=== PATIENT | female | born 1990 | race Caucasian/White ===

== ENCOUNTER 2016-04-06 11:12 | Emergency (ER) | payer SELFPAY ==
[~2016-04-06] VITALS: Ht 157.5 cm; Wt 73.5 kg
[~2016-04-06 11:12] MED LIST: ERYT1OIN6 EACHEYE; NITR100C62 PO
[2016-04-06 12:00] LABS: BASO % 1 % (0-3); EOS % 1 % (0-3); HEMATOCRIT 40.9 % (36.0-47.0); HEMOGLOBIN 13.5 g/dL (12.0-15.5); LYMPH # 1.8 x10^3/uL (1.0-4.8); LYMPH % 33 % (24-48); MEAN CORPUSCULAR HEMOGLOBIN 24 pg (25-35); MEAN CORPUSCULAR HGB CONC 33 g/dL (31-37); MEAN CORPUSCULAR VOLUME 73 fL (79-100); MONO % 10 % (0-9); NEUT % 56 % (31-73); PLATELET COUNT 252 x10^3/uL (140-400); RED BLOOD COUNT 5.63 x10^6/uL (3.50-5.40); RED CELL DISTRIBUTION WIDTH 17.5 % (11.5-14.5); WHITE BLOOD COUNT 5.4 x10^3/uL (4.0-11.0)
[2016-04-06] MEDS ORDERED: KETOROLAC TROMETHAMINE 30 MG/ML SYRINGE. IV ONE (12:00)
[2016-04-06] MEDS ORDERED: IV NORMAL SALINE 1000ML BAG 1,000 ML IV SCH (12:00)
[2016-04-06 12:08] LABS: CALCIUM 8.9 mg/dL (8.5-10.1); CREATININE 0.7 mg/dL (0.6-1.0); GFR 101.1; POTASSIUM 3.2 mmol/L (3.5-5.1)
[2016-04-06 12:14] LABS: ALBUMIN 3.9 g/dL (3.4-5.0); ALBUMIN/GLOBULIN RATIO 1.1 (1.0-1.7); TOTAL BILIRUBIN 0.3 mg/dL (0.2-1.0); TOTAL PROTEIN 7.4 g/dL (6.4-8.2)
[2016-04-06 13:20] LABS: BILIRUBIN,URINE NEGATIVE (NEG); GLUCOSE,URINE NEGATIVE (NEG); NITRITE,URINE NEGATIVE (NEG); PROTEIN,URINE NEGATIVE (NEG-TRACE)
[2016-04-06 13:28] LABS: ANISOCYTOSIS SLIGHT; PLT ESTIMATE ADEQUATE (ADEQUATE)
[2016-04-06 13:29] LABS: OVALOCYTES FEW
[2016-04-06 13:35] LABS: BACTERIA,URINE 0 /HPF (0-FEW); RBC,URINE 0 /HPF (0-2); SQUAMOUS EPITHELIAL CELL,UR FEW /LPF; TRICHOMONAS,URINE PRESENT; WBC,URINE >40 /HPF (0-4)
[2016-04-06 13:57] VITALS: BP 133/71
--- NOTE | 2016-04-06 14:06 | PHYS DOC ---
Past Medical History Past Medical History: Depression, Hypertension, UTI Additional Past Medical Histor: CARPAL TUNNEL, HERNIA REMOVED, BACK STENOSIS Past Surgical History: , Tonsillectomy, Tubal ligation Additional Past Surgical Histo: TOTAL TOOTH EXTRACTION, hernia repair, Tubal ligation Additional Information: 1/2 PPD. 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 Adult General Chief Complaint Chief Complaint: multiple HPI HPI Patient is a 25 year old female who presents with multiple complaints. [facility]. Patient states she had some nausea and vomited once 2 days ago. There were some dark specks in it, she couldn't tell if it was "tobacco or blood". Yesterday she didn't feel well and her sister said she was sweating, she went over to the bed and "passed out" for 20 minutes. Later when she was feeling a little better she checked her blood pressure and it was 144/100 and her pulse was 103. She had hypertension when she was but does not have chronic hypertension. [facility] were concerned that she might have a left facial droop and she also complained that her right arm was numb so she was sent for neurology evaluation. Currently she does not have a headache. Denies UTI symptoms. She's been having a lot of stress lately because the state took her kids away and she is trying to get them back. She is got a house yesterday and they are getting ready to move. She also had a in the family last month. [facility]CP [facility] Review of Systems Review of Systems Constitutional: Denies fever or chills [] Eyes: Denies change in visual acuity, redness, or eye pain [] HENT: Denies nasal congestion or sore throat [] Respiratory: She does have a cough, she does smoke cigarettes Cardiovascular: No cardiac complaints GI: As in history of present illness for nausea 2 days ago with one episode of vomiting : Denies dysuria or hematuria [] Musculoskeletal: Denies back pain or joint pain [] Integument: Denies rash or skin lesions [] Neurologic: As in history of present illness for right arm numbness and the concern for [facility]op [facility]. Current Medications Current Medications Current Medications Medications (Trade) Dose Ordered Sig/Jake Start Time Stop Time Status Last Admin Dose Admin Ketorolac Tromethamine (Toradol) 30 mg 1X ONCE 04/06/16 12:00 04/06/16 12:01 DC 04/06/16 13:13 30 MG Metronidazole (Flagyl) 2,000 mg 1X ONCE 04/06/16 14:15 04/06/16 14:16 DC 04/06/16 14:15 2,000 MG Sodium Chloride (Iv Sodium Chloride 0.9% 1000ml Bag) 1,000 ml @ 1,000 mls/hr Q1H 04/06/16 12:00 04/06/16 12:59 DC 04/06/16 13:12 1,000 MLS/HR Allergies Allergies Allergies Coded Allergies Type Severity Reaction Last Updated Verified Penicillins Allergy Intermediate HIVES,SWELLING 05/13/13 Yes Physical Exam Physical Exam Constitutional: Well developed, well nourished, no acute distress, non-toxic appearance. Alert, mentating normally, no facial droop noted, the patient is noted to have no teeth. HENT: Normocephalic, atraumatic, bilateral external ears normal, oropharynx moist, no oral exudates, nose normal. [] Eyes: conjunctiva normal, no discharge. [] Neck: Normal range of motion, no stridor. [] Cardiovascular:Heart rate regular rhythm, no murmur [] Lungs & Thorax: Bilateral breath sounds clear to auscultation [] Abdomen: Bowel sounds normal, soft, no tenderness, no masses, no pulsatile masses. [] Skin: Warm, dry, no erythema, no rash. [] Extremities: Right shoulder is tender to palpation over the anterior joint line , otherwise, No tenderness, no cyanosis, no clubbing, ROM intact, no edema. [] Neurologic: Alert and oriented X 3, normal motor function, normal sensory function, no focal deficits noted. [] Current Patient Data Vital Signs Vital Signs Date Time Temp Pulse Resp B/P Pulse Ox O2 Delivery O2 Flow Rate FiO2 04/06/16 11:48 98.4 86 17 131/78 97 Room Air 98.4 Lab Values Laboratory Tests Test 04/06/16 11:48 04/06/16 13:10 04/06/16 13:15 White Blood Count 5.4x10^3/uL (4.0-11.0) Red Blood Count 5.63x10^6/uL (3.50-5.40) H Hemoglobin 13.5g/dL (12.0-15.5) Hematocrit 40.9% (36.0-47.0) Mean Corpuscular Volume 73fL (79-100) L Mean Corpuscular Hemoglobin 24pg (25-35) L Mean Corpuscular Hemoglobin Concent 33g/dL (31-37) Red Cell Distribution Width 17.5% (11.5-14.5) H Platelet Count 252x10^3/uL (140-400) Neutrophils (%) (Auto) 56% (31-73) Lymphocytes (%) (Auto) 33% (24-48) Monocytes (%) (Auto) 10% (0-9) H Eosinophils (%) (Auto) 1% (0-3) Basophils (%) (Auto) 1% (0-3) Neutrophils # (Auto) 3.0x10^3uL (1.8-7.7) Lymphocytes # (Auto) 1.8x10^3/uL (1.0-4.8) Monocytes # (Auto) 0.5x10^3/uL (0.0-1.1) Eosinophils # (Auto) 0.1x10^3/uL (0.0-0.7) Basophils # (Auto) 0.0x10^3/uL (0.0-0.2) Platelet Estimate Adequate (ADEQUATE) Anisocytosis Slight Ovalocytes Few Sodium Level 144mmol/L (136-145) Potassium Level 3.2mmol/L (3.5-5.1) L Chloride Level 105mmol/L (98-107) Carbon Dioxide Level 25mmol/L (21-32) Anion Gap 14 (6-14) Blood Urea Nitrogen 5mg/dL (7-20) L Creatinine 0.7mg/dL (0.6-1.0) Estimated GFR (Cockcroft-Gault) 101.1 BUN/Creatinine Ratio 7 (6-20) Glucose Level 81mg/dL (70-99) Calcium Level 8.9mg/dL (8.5-10.1) Total Bilirubin 0.3mg/dL (0.2-1.0) Aspartate Amino Transferase (AST) 24U/L (15-37) Alanine Aminotransferase (ALT) 26U/L (14-59) Alkaline Phosphatase 81U/L (46-116) Total Protein 7.4g/dL (6.4-8.2) Albumin 3.9g/dL (3.4-5.0) Albumin/Globulin Ratio 1.1 (1.0-1.7) Urine Collection Type Unknown Urine Color Yellow Urine Clarity Clear Urine pH 6.0 Urine Specific [place] 1.010 Urine Protein Negativemg/dL (NEG-TRACE) Urine Glucose (UA) Negativemg/dL (NEG) Urine Ketones (Stick) Negativemg/dL (NEG) Urine Blood Negative (NEG) Urine Nitrite Negative (NEG) Urine Bilirubin Negative (NEG) Urine Urobilinogen Dipstick 1.0mg/dL (0.2 mg/dL) Urine Leukocyte Esterase Large (NEG) Urine RBC 0/HPF (0-2) Urine WBC >40/HPF (0-4) Urine Squamous Epithelial Cells Few/LPF Urine Bacteria 0/HPF (0-FEW) Urine Trichomonas Present POC Urine HCG, Qualitative Hcg negative (Negative) Laboratory Tests 04/06/16 11:48 Laboratory Tests 04/06/16 11:48 EKG EKG 12-lead EKG read by me. Sinus rhythm. Heart rate 81. There are no acute ST or T wave changes indicative of ischemia or infarction. No STEMI. 1122 [] Radiology/Procedures Radiology/Procedures [] Course & Med Decision Making Course & Med Decision Making Pertinent Labs and Imaging studies reviewed. (See chart for details) 25-year-old healthy female presents [facility] and they were concerned about "left facial droop" and also concerned about her complaint of right arm numbness. The patient is edentulous and although her face may be somewhat asymmetric, on my evaluation she does not have any evidence of facial droop and she does not have any other neurologic abnormality. Her exam is normal and symmetrical. Also the significant other here with her does not see any facial abnormality or droop at this time. An additional concern was elevated blood pressure. It was mildly elevated on arrival but after she rested it went down to 121/60 without treatment. I advised her to keep an eye on this at home, I would not treat this blood pressure at that time, she can keep a log at home since she does have a blood pressure monitor. Blood tests unremarkable, urinalysis negative for UTI but did show Trichomonas, I discussed this with the patient, she has had trichomonas before, we will treat with one dose of metronidazole 2 g by mouth in the ED. I advised her to have her partner treated before having sex and she understands that. [] Melaon Disclaimer Anderson Disclaimer This electronic medical record was generated, in whole or in part, using a voice recognition dictation system. Departure Departure Impression: Primary Impression: Feared condition not demonstrated Additional Impression: Trichomonas infection Disposition: HOME, SELF-CARE Condition: STABLE Referrals: NO PCP (PCP) Patient Instructions: Trichomoniasis-Brief Additional Instructions: Today, your exam was negative for stroke. After you rested, your blood pressure came down and was normal. Your lab tests were normal except your urine test did show Trichomonas. We treated you for that. Your partner needs to be treated before you have sex. It will be passed back and forth if not. As we discussed, check your blood pressure once or twice a day at random times and keep a log of it. If your blood pressure continues to run on the high side, see your doctor to discuss. Problem Qualifiers RALPH HARDY MD Apr 06, 2016 14:06
[2016-04-06] MEDS ORDERED: METRONIDAZOLE 500 MG TABLET. PO ONE (14:15)
--- NOTE | 2016-04-06 15:59 | EKG ---
[facility] [address] [place] [address] Test Date: 2016-04-06 Test Time: 11:22:38 Pat Name: АННА DUMONT Department: Room: Gender: F Loftsman: : 1990 Requested By: RALPH HARDY Order Number: [id number] Reading MD: Measurements Intervals [place] Rate: 81 P: 51 [place]: 144 QRS: 59 QRSD: 84 T: 39 QT: 374 QTc: 440 Interpretive Statements SINUS RHYTHM NORMAL ECG RI6.01 No previous ECG available for comparison
== END 2016-04-06 14:32 | disposition home or self-care (01) ==
LOC: ER 11:12
DX: A59.9 Trichomoniasis, unspecified (principal); Z71.1 Person with feared health complaint in whom no diagnosis is made; I10 Essential (primary) hypertension; F17.200 Nicotine dependence, unspecified, uncomplicated; F32.9 Major depressive disorder, single episode, unspecified; Z88.0 Allergy status to penicillin
CPT/HCPCS: 36415; 80053; 81001; 81025; 85007; 85027; 87086; 93005; 96361; 96374; 99285; J1885; J7030

== ENCOUNTER 2021-04-19 16:41 | Inpatient (IN) | payer SELFPAY ==
[~2021-04-19] VITALS: Ht 157.5 cm; Wt 62.3 kg
[~2021-04-19 16:41] MED LIST changes: +ERYT1OIN3 EACHEYE; -ERYT1OIN6 EACHEYE
[2021-04-19 18:01] LABS: BARBITURATES NEG (NEG); BENZODIAZEPINES NEG (NEG); BILIRUBIN,URINE NEGATIVE (NEG); CANNABINOIDS NEG (NEG); CLARITY,URINE CLEAR; COCAINE NEG (NEG); COLOR,URINE STRAW; METHADONE NEG (NEG); NITRITE,URINE NEGATIVE (NEG); OPIATES NEG (NEG); PHENCYCLIDINE NEG (NEG); PROTEIN,URINE NEGATIVE (NEG-TRACE); UROBILINOGEN,URINE 0.2 mg/dL (0.2 mg/dL)
[2021-04-19 18:03] LABS: AMPHETAMINE/METHAMPHETAMINE NEG (NEG)
[2021-04-19 18:04] LABS: BACTERIA,URINE 0 /HPF (0-FEW); RBC,URINE 0 /HPF (0-2)
[2021-04-19 18:12] LABS: BASO # 0.1 x10^3/uL (0.0-0.2); BASO % 1 % (0-3); EOS # 0.1 x10^3/uL (0.0-0.7); EOS % 1 % (0-3); HEMATOCRIT 42.3 % (36.0-47.0); HEMOGLOBIN 14.4 g/dL (12.0-15.5); LYMPH # 1.9 x10^3/uL (1.0-4.8); LYMPH % 19 % (24-48); MEAN CORPUSCULAR HEMOGLOBIN 30 pg (25-35); MEAN CORPUSCULAR HGB CONC 34 g/dL (31-37); MEAN CORPUSCULAR VOLUME 88 fL (79-100); MONO # 1.1 x10^3/uL (0.0-1.1); MONO % 11 % (0-9); NEUT # 6.6 x10^3/uL (1.8-7.7); NEUT % 67 % (31-73); PLATELET COUNT 261 x10^3/uL (140-400); RED BLOOD COUNT 4.81 x10^6/uL (3.50-5.40); RED CELL DISTRIBUTION WIDTH 14.2 % (11.5-14.5); WHITE BLOOD COUNT 9.8 x10^3/uL (4.0-11.0)
[2021-04-19 18:23] LABS: CALCIUM 8.2 mg/dL (8.5-10.1); GFR 64.3; POTASSIUM 3.6 mmol/L (3.5-5.1)
[2021-04-19 18:30] LABS: ALBUMIN 3.6 g/dL (3.4-5.0); ALBUMIN/GLOBULIN RATIO 1.2 (1.0-1.7); TOTAL BILIRUBIN 0.7 mg/dL (0.2-1.0); TOTAL PROTEIN 6.6 g/dL (6.4-8.2)
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
[2021-04-19] MEDS ORDERED: ACETAMINOPHEN 325 MG TABLET. PO ONE (18:45)
[2021-04-19] MEDS ORDERED: IBUPROFEN 200 MG TABLET. PO ONE (18:45)
[2021-04-19] MEDS ORDERED: CONTRAST GIVEN. MC PRN (19:00)
[2021-04-19] MEDS ORDERED: IOHEXOL 300 MG/ML 100ML VIAL. IV ONE (19:00)
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
[2021-04-19] MEDS ORDERED: HYDROcodone/APAP 10/325 1 TAB TABLET PO ONE (20:15)
[2021-04-19] MEDS ORDERED: HYDROcodone/APAP 5/325MG 1 TAB TABLET PO PRN (20:45)
[2021-04-19] MEDS ORDERED: ACETAMINOPHEN 325 MG TABLET. PO PRN (20:45)
[2021-04-19] MEDS ORDERED: IBUPROFEN 200 MG TABLET. PO PRN (20:45)
[2021-04-19] MEDS ORDERED: ONDANSETRON PF 4 MG/2 ML VIAL. IVP PRN (20:45)
[2021-04-19 23:35] VITALS: BP 122/83
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
[2021-04-20 02:58] VITALS: BP 116/77
[2021-04-20 07:00] VITALS: BP 124/77
--- NOTE | 2021-04-20 07:22 | EKG ---
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
[2021-04-20 11:00] VITALS: BP 98/62
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
--- NOTE | 2021-04-20 14:22 | NUR ---
Pt states she is missing her drivers license and 2 credit cards, call to the ER was advised that patient came in to the ER with out any form of ID or credit cards on her person.
[2021-04-20] MEDS ORDERED: IBUP-1670 PO (14:48)
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
[2021-04-20] MEDS ORDERED: hydrOXYzine 25 MG TABLET PO PRN (16:00)
--- NOTE | 2021-04-20 16:05 | NUR ---
IV discontinued by Ravi WARREN.
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
== END 2021-04-20 16:16 | disposition home or self-care (01) | DRG 552 ==
LOC: EEVIPCON 16:41 → ER 16:41 → 4 NORTH 20:35
PROVIDERS: ADMIT Internal Medicine; ATTEND Internal Medicine
DX: S32.009A Unspecified fracture of unspecified lumbar vertebra, initial encounter for closed fracture (principal); T74.91XA Unspecified adult maltreatment, confirmed, initial encounter; F10.10 Alcohol abuse, uncomplicated; F17.210 Nicotine dependence, cigarettes, uncomplicated; F32.A Depression, unspecified; I10 Essential (primary) hypertension; F19.10 Other psychoactive substance abuse, uncomplicated; X58.XXXA Exposure to other specified factors, initial encounter; Y93.89 Activity, other specified; Z82.49 Family history of ischemic heart disease and other diseases of the circulatory system; Z87.440 Personal history of urinary (tract) infections; Z98.51 Tubal ligation status; Z88.0 Allergy status to penicillin; Y92.89 Other specified places as the place of occurrence of the external cause; Y99.8 Other external cause status
CPT/HCPCS: 36415; 71260; 74177; 80053; 80307; 81001; 81025; 84484; 85025; 93005; G0480; Q9967; 99285-25; G0378